=== PATIENT | female | born 1955 | race Caucasian/White ===

== ENCOUNTER 2017-10-20 18:36 | Emergency (ER) | payer OTHER ==
[~2017-10-20] VITALS: Ht 160 cm; Wt 106.1 kg
[2017-10-20 18:44] VITALS: Ht 160 cm; Wt 106.1 kg
[2017-10-20 20:00] VITALS: BP 162/73
== END 2017-10-20 19:35 | disposition home or self-care (01) ==
LOC: ED 18:36
DX: K64.5 Perianal venous thrombosis (principal); F41.9 Anxiety disorder, unspecified; J44.9 Chronic obstructive pulmonary disease, unspecified; I10 Essential (primary) hypertension; E66.9 Obesity, unspecified; Z87.891 Personal history of nicotine dependence; Z88.8 Allergy status to other drugs, medicaments and biological substances

== ENCOUNTER 2018-03-11 17:19 | Inpatient (IN) | payer OTHER ==
[~2018-03-11] VITALS: Ht 160 cm; Wt 104.9 kg
[2018-03-11 17:23] VITALS: Ht 160 cm; Wt 104.9 kg
[2018-03-11 19:45] LABS: BASOPHIL % 0.4 % (0-2); PLATELET COUNT 182 x10^3mcL (130-400); RED CELL DISTRIBUTION WIDTH 13.5 % (11.5-14.5)
[2018-03-11 19:54] LABS: CALCIUM 9.1 mg/dL (8.5-10.1); CARBON DIOXIDE 29.9 mmol/L (21-32); CREATININE SERUM 1.9 mg/dL (0.6-1.0); POTASSIUM SERUM 4.2 mmol/L (3.5-5.1)
[2018-03-11 19:59] LABS: ALBUMIN 3.8 g/dL (3.4-5.0); BILIRUBIN TOTAL 0.45 mg/dL (0.20-1.00); TOTAL PROTEIN, SERUM 7.1 g/dL (6.4-8.2)
[2018-03-11] MEDS ORDERED: DILTIAZEM HCL120 M2 PO (21:43)
[2018-03-11] MEDS ORDERED: VENTOLIN H0.09 MG/A1 IH (21:44)
[2018-03-11] MEDS ORDERED: COMINH INH (21:44)
[2018-03-11 21:45] VITALS: BP 127/59
[2018-03-11] MEDS ORDERED: LISINOPRIL40 MG PO (21:45)
[2018-03-11] MEDS ORDERED: ATENOLOL100 MG PO (21:45)
[2018-03-11] MEDS ORDERED: GABAPENTIN400 M1 PO (21:45)
[2018-03-11] MEDS ORDERED: GOOD SENSE OMEP20 MG PO (21:45)
[2018-03-11] MEDS ORDERED: ESCITALOPRAM OX10 MG PO (21:46)
[2018-03-11] MEDS ORDERED: CHLORTHALIDONE25 MG PO (21:46)
[2018-03-11] MEDS ORDERED: D3-50001 TAB PO (21:46)
[2018-03-11] MEDS ORDERED: LORAZEPAM0.5 MG PO ×2 (21:47)
[2018-03-11] MEDS ORDERED: ASPIRIN ADULT L81 M5 PO (21:47)
[2018-03-11 21:53] LABS: MAGNESIUM 1.6 mg/dL (1.8-2.4)
[2018-03-11 21:56] LABS: CHOLESTEROL/HDL RATIO 7.8
[2018-03-11 22:26] VITALS: BP 106/48
[2018-03-12 03:47] LABS: BASOPHIL % 0.6 % (0-2); PLATELET COUNT 170 x10^3mcL (130-400); RED CELL DISTRIBUTION WIDTH 13.4 % (11.5-14.5)
[2018-03-12 03:54] LABS: CALCIUM 8.7 mg/dL (8.5-10.1); CARBON DIOXIDE 30.9 mmol/L (21-32); CREATININE SERUM 1.7 mg/dL (0.6-1.0); POTASSIUM SERUM 4.1 mmol/L (3.5-5.1)
[2018-03-12 05:16] LABS: microscopic required? NO
[2018-03-12 05:21] LABS: urine erythrocyte NEGATIVE (NEGATIVE)
[2018-03-12 05:29] LABS: AMPHETAMINE QUAL UR NONE DETECTED (See below)
[2018-03-12 06:30] VITALS: BP 112/49
[2018-03-12 08:52] VITALS: BP 125/49
[2018-03-12 09:45] VITALS: BP 116/55
[2018-03-12 17:00] VITALS: BP 127/58
[2018-03-12 17:15] VITALS: BP 124/55
== END 2018-03-12 18:47 | disposition short-term general hospital (02) | DRG 190 ==
LOC: ED 17:19 → DU 21:09
PROVIDERS: Emergency Medicine; Internal Medicine
DX: I21.4 Non-ST elevation (NSTEMI) myocardial infarction (principal); E66.01 Morbid (severe) obesity due to excess calories; N18.3 Chronic kidney disease, stage 3 (moderate); I25.10 Atherosclerotic heart disease of native coronary artery without angina pectoris; F41.9 Anxiety disorder, unspecified; D64.9 Anemia, unspecified; I12.9 Hypertensive chronic kidney disease with stage 1 through stage 4 chronic kidney disease, or unspecified chronic kidney disease; J44.9 Chronic obstructive pulmonary disease, unspecified; Z88.8 Allergy status to other drugs, medicaments and biological substances; Z90.49 Acquired absence of other specified parts of digestive tract; Z87.891 Personal history of nicotine dependence; Z68.41 Body mass index [BMI] 40.0-44.9, adult
CPT/HCPCS: 83880; J1644; J2270; J2405; J3475; J7620; Q0092

== ENCOUNTER 2020-01-11 13:36 | Emergency (ER) | payer OTHER ==
[~2020-01-11] VITALS: Ht 157.5 cm; Wt 107.0 kg
[~2020-01-11 13:36] MED LIST: ASPIRIN ADULT L81 M5 PO; ATENOLOL100 MG PO; CHLORTHALIDONE25 MG PO; COMINH INH; D3-50001 TAB PO; DILTIAZEM HCL120 M2 PO; ESCITALOPRAM OX10 MG PO; GABAPENTIN400 M1 PO; GOOD SENSE OMEP20 MG PO; LISINOPRIL40 MG PO; LORAZEPAM0.5 MG PO; VENTOLIN H0.09 MG/A1 IH
[2020-01-11 13:40] VITALS: Ht 157.5 cm; Wt 107.0 kg
[2020-01-11 15:37] VITALS: BP 134/63
== END 2020-01-11 15:37 | disposition home or self-care (01) ==
LOC: ED 13:36
DX: M54.6 Pain in thoracic spine (principal); M25.512 Pain in left shoulder; R07.89 Other chest pain; J44.9 Chronic obstructive pulmonary disease, unspecified; I10 Essential (primary) hypertension; Z90.89 Acquired absence of other organs; Z88.1 Allergy status to other antibiotic agents; V49.49XA Driver injured in collision with other motor vehicles in traffic accident, initial encounter; Y93.I9 Activity, other involving external motion; Y92.488 Other paved roadways as the place of occurrence of the external cause; Y99.8 Other external cause status